=== PATIENT | male | born 1970 | race African-American/Black ===

== ENCOUNTER → 2019-03-17 | Day surgery (SDC) | payer OTHER ==
[~2019-03-17] VITALS: Ht 170.2 cm; Wt 126.6 kg
[~2019-03-17] MED LIST: CIPROFLOXACIN 400MG/200ML 200 ML IV ONE; MIDAZOLAM HCL 1MG/1ML-2 ML VIAL ONE; ONDANSETRON HCL 4 MG/2 ML VIAL IV PRN; PROPOFOL 10 MG/ML 20 ML IV ONE; ePHEDrine SULFATE 50 MG/ML AMP IV PRN; fentaNYL CITRATE 100 MCG/2 ML VL IV ONE; fentaNYL CITRATE 100 MCG/2 ML VL IV PRN; fentaNYL CITRATE 100 MCG/2 ML VL ONE; hydrALAZINE HCL 20 MG/ML VL IV PRN
[2019-03-17 08:28] LABS: INR 1.07 (0.9-1.15); Partial Thromboplastin Time 26.7 sec (23.64-32.05)
[2019-03-17 14:35] VITALS: BP 122/84
== END | disposition home or self-care (01) ==
LOC: SUR 06:05
PROVIDERS: ATTEND Urology
DX: N35.819 Other urethral stricture, male, unspecified site (principal); I10 Essential (primary) hypertension; E66.01 Morbid (severe) obesity due to excess calories; K21.9 Gastro-esophageal reflux disease without esophagitis; Z91.010 Allergy to peanuts; Z68.41 Body mass index [BMI] 40.0-44.9, adult
CPT/HCPCS: 36415; 52276; 85610; 85730; C1769; J0744; J2250; J2704; J3010